=== PATIENT | female | born 1965 | race African-American/Black ===

== ENCOUNTER 2018-01-17 13:31 | Emergency (ER) | payer OTHER ==
[~2018-01-17] VITALS: Ht 157.5 cm; Wt 86.2 kg
[2018-01-17] MEDS ORDERED: ALLER-CHLOR4 MG PO (13:43)
[2018-01-17] MEDS ORDERED: FLONASE1 SPRAYS NASAL (13:43)
[2018-01-17] MEDS ORDERED: AMLODIPINE BESYL5 MG ORAL (13:43)
[2018-01-17] MEDS ORDERED: PROAIR HFA8.5 GM INH (13:43)
[2018-01-17] MEDS ORDERED: EPLERENONE25 MG PO (13:43)
[2018-01-17 13:49] VITALS: BP 188/99
--- NOTE | 2018-01-17 14:12 | Emergency Room Report ---
History of Present Illness General Chief Complaint: Pain Source: Patient Present Illness HPI 52 yo female patient reports to ER complaining of sciatica pain [id number]. Patient reports hx of sciatica for four years but reports no pain until exacerbation 2 weeks ago. Patient reports pain with sitting down; reports pain radiates down to left leg. Patient reports sciatica pain onset after moving furniture on the 02 of January. Denies acute injury. Reports being seen at ER in ; reports being given Ibuprofen and Flexeril at that time for symptoms. Reports taking 1200mg Ibuprofen and Aleve 3 hours ago. Patient denies chest pain, SOB, fever. Patient denies abdominal pain, no bowel or bladder incontinence, dysuria, blood in urine or stool, nausea, vomiting. Allergies: Coded Allergies: AMOXICILLIN (Verified Allergy, Unknown, ANGIOEDEMA, 01/17/18) GRASS POLLEN (Verified Allergy, Unknown, 01/17/18) HYDROCHLOROTHIAZIDE (Verified Allergy, Unknown, Hives, 01/17/18) MORPHINE (Verified Allergy, Unknown, EXTREME VOMITING, 01/17/18) Patient History Past Medical History: see triage record Last Menstrual Period: Hysterectomy 2009. Reviewed Nursing Documentation: PMH: Agreed, PSxH: Agreed Nursing Documentation-PMH Hx Hypertension: Yes Hx Asthma: Yes Review of Systems All Other Systems: negative except mentioned in HPI Physical Exam Vital Signs Date Time Temp Pulse Resp B/P (MAP) Pulse Ox O2 Delivery O2 Flow Rate FiO2 01/17/18 13:36 98.7 114 19 188/99 97 Room Air 98.8 Sp02 EP Interpretation: reviewed, normal General Appearance: well appearing, alert, GCS 15, non-toxic, mild distress Head: normocephalic, atraumatic Eyes: bilateral eye normal inspection, bilateral eye PERRL ENT: hearing grossly normal, normal pharynx, normal voice, uvula midline, moist mucus membranes Neck: normal inspection, full range of motion, no bony tend Respiratory: normal inspection, lungs clear, normal breath sounds, no rhonchi, no accessory muscle use, no wheezing, speaking full sentences Cardiovascular #1: regular rate, rhythm, no edema Cardiovascular #2: 2+ dorsalis pedis (R), 2+ dorsalis pedis (L) Rectal: deferred Genitourinary: no CVA tenderness Musculoskeletal: back normal, digits/nails normal, gait/station normal, normal range of motion, non-tender, no calf tenderness, Jose's Sign negative, other - pain with left straight leg raise Neurologic: alert, oriented x3, responsive, motor strength/tone normal, sensory intact, normal gait Psychiatric: mood/affect normal Skin: no rash Lymphatic: no adenopathy Medical Decision Making PA Attestation Dr. Land is my supervising Physician whom patient management has been discussed with. Diagnostic Impression: Primary Impression: Sciatica of left side ER Course Pt. presents to the ED c/o sciatica. Ddx considered but are not limited to sciatica, sprain, strain, contusion. Vital signs: pt. is afebrile. Patient blood pressure and pulse elevated; patient in mild distress currently secondary to pain. Denies chest pain, SOB, vision changes, leg swelling. Patient reports history of HTN. Patient instructed to followup with primary care provider for further treatment and referral as needed. Positive straight leg test of left leg while seated. Likely sciatica exacerbation. No bony tenderness. Denies bowel or bladder incontinence; suspicion for cauda equina low. Does not require imaging at this time. ER COURSE: Lidocaine patch provided to patient. Patient reports feeling much improved following placement of lidocaine patch. Informed patient will not provide with medication at this time due to increased dosage of NSAIDs taken earlier today. Informed patient not to take larger than recommended dosage of medication. Patient reports she has appointment on January 19, 2018; informed patient to keep appointment and to discuss further treatment and referral at that time; possible referral to pain management; may require further imaging at that time. Patient reports understanding and agreement to treatment plan. DISCHARGE: Rx provided for Methocarbamol. May cause drowsiness. Informed patient of side effects. Rx provided for lidocaine patches. If insurance will not cover, may use Salonpas or Bengay for topical relief of pain. Purchase seat donut for alleviation of pain while sitting. Instructed patient to take medications as directed. Take Ibuprofen for pain. Do not exceed recommended dosage of pain. At this time pt is stable for d/c to home. Patient is resting comfortably, in no acute distress, nontoxic appearing, talking without difficulty. Patient able to ambulate independently without difficulty. Vitals WNL prior to discharge. Patient to take medications as instructed Will provide with patient care instructions and any necessary prescriptions. Care plan and follow-up instructions provided. Patient instructed to follow-up with primary care provider in 3 - 5 days. Patient questions asked and answered. Patient reports understanding and agreement to treatment plan. ER precautions given. Patient instructed to return to ER immediately for any new or worsening of symptoms including but not limited to increasing SOB, persistent fever, abdominal pain, nausea, vomiting. Last Vital Signs Date Time Temp Pulse Resp B/P (MAP) Pulse Ox O2 Delivery O2 Flow Rate FiO2 01/17/18 13:49 98.8 19 188/99 97 Room Air 98.8 01/17/18 13:36 114 Disposition: HOME, SELF-CARE Condition: Stable Scripts Lidocaine (Lidoderm) 1 Each Adh..patch 1 PATCH TOPIC DAILY, #10 PATCH 0 Refills Patch(es) may remain in place for up to 12 hours in any 24-hour period. Prov: Jason Barlow 01/17/18 Methocarbamol* (ROBAXIN*) 500 Mg Tablet 500 MG PO TID, #21 TAB 0 Refills Prov: Jason Barlow 01/17/18 Patient Instructions: Sciatica, [id number] Additional Instructions: Followup with primary care provider in 3 -5 days. Discuss further referral to pain management. Take medications as directed. Do not take more than recommended dosage of medications. Muscle relaxant may cause sleepiness; do not drive, drink or operate heavy machinery while taking. Patient questions asked and answered. Do not move heavy furniture that may exacerbate pain. ER precautions given, patient instructed to return to ER immediately for any new or worsening of symptoms. Jason Barlow Jan 17, 2018 14:12
[2018-01-17] MEDS ORDERED: LIDODERM700 M1 TOPIC (14:15)
[2018-01-17] MEDS ORDERED: ROBAXIN500 MG PO (14:15)
[2018-01-17 15:15] VITALS: BP 145/79
== END 2018-01-17 14:41 | disposition home or self-care (01) ==
LOC: EMR 14:12
DX: M54.32 Sciatica, left side (principal); Z88.0 Allergy status to penicillin; Z88.5 Allergy status to narcotic agent; I10 Essential (primary) hypertension; J45.909 Unspecified asthma, uncomplicated
CPT/HCPCS: 99284

== ENCOUNTER 2019-04-05 21:10 | Emergency (ER) | payer OTHER ==
[~2019-04-05] VITALS: Ht 157.5 cm; Wt 86.6 kg
[~2019-04-05 21:10] MED LIST: ALLER-CHLOR4 MG PO; AMLODIPINE BESYL5 MG ORAL; EPLERENONE25 MG PO; FLONASE1 SPRAYS NASAL; LIDODERM700 M1 TOPIC; PROAIR HFA8.5 GM INH; ROBAXIN500 MG PO
[2019-04-05 21:24] VITALS: BP 125/70
--- NOTE | 2019-04-05 21:24 | NUR ---
ED Nurse Note: Pt arrived ED from home, c/o coughing greenish mucus for 2 days with sore throat and both lower chest pain. Pt is A/O X 4. Vital signs stable at this time, waiting for orders.
[2019-04-05] MEDS ORDERED: Ketorolac 30mg Inj IV ONE (21:45)
--- NOTE | 2019-04-05 21:51 | Emergency Room Report ---
History of Present Illness General Chief Complaint: Upper Respiratory Illness Source: Patient Present Illness HPI Patient presents with 4 days of fatigue in 2 days of chest pain with cough with green phlegm. She has a history of asthma. She was certain an inhaler yesterday morning. She's not been wheezing. The pain is left-sided, pleuritic and when she coughs. There's been no coughing up blood. She feels like when she had walking pneumonia 12-15 years ago. She denies any fevers or chills. She has slight swelling in her left leg. She had pins placed in her ankle. She denies having a blood clot and was checked when the surgery was done. Patient is rated 7/10 and radiates somewhat towards the side of the chest. The patient has a history of hypertension. She is on multiple medications. See medical treatment regarding h/o lupus and leukocytosis. Allergies: Coded Allergies: AMOXICILLIN (Verified Allergy, Unknown, ANGIOEDEMA, 01/17/18) BACLOFEN (Unverified Allergy, Unknown, 04/05/19) GRASS POLLEN (Verified Allergy, Unknown, 01/17/18) HYDROCHLOROTHIAZIDE (Verified Allergy, Unknown, Hives, 01/17/18) MORPHINE (Verified Allergy, Unknown, EXTREME VOMITING, 01/17/18) Uncoded Allergies: BACOFEN (Allergy, Unknown, 04/05/19) Patient History Past Medical History: see triage record Past Surgical History: hysterectomy - Partial Social History: Denies: smoking Social History Narrative from home Last Menstrual Period: Stop at 2009 Now: No Reviewed Nursing Documentation: PMH: Agreed; PSxH: Agreed Nursing Documentation-PMH Hx Hypertension: Yes Hx Asthma: Yes Hx COPD: Yes - PNA Hx Neurological Problems: Yes - Sciatica, Pins to left ankle, neck pain Review of Systems All Other Systems: negative except mentioned in HPI Physical Exam Vital Signs Date Time Temp Pulse Resp B/P (MAP) Pulse Ox O2 Delivery O2 Flow Rate FiO2 04/05/19 21:15 98.2 76 20 98 Room Air 04/05/19 21:24 125/70 Sp02 EP Interpretation: reviewed, normal General Appearance: well appearing, no apparent distress, GCS 15 Head: normocephalic Eyes: bilateral eye normal inspection, bilateral eye PERRL, bilateral eye EOMI ENT: moist mucus membranes Neck: supple Respiratory: lungs clear, normal breath sounds, other - Pain with breathing Cardiovascular #1: regular rate, rhythm Cardiovascular #2: 2+ radial (R) Gastrointestinal: normal inspection, normal bowel sounds, non tender, no mass, non-distended Musculoskeletal: back normal, gait/station normal, normal range of motion, no calf tenderness Neurologic: alert, oriented x3, grossly normal Skin: normal inspection, warm/dry Medical Decision Making Diagnostic Impression: Primary Impression: Pleurisy Additional Impressions: Leukocytosis Qualified Codes: D72.828 - Other elevated white blood cell count History of lupus ER Course Patient with asthma presents with pleuritic right-sided chest pain and productive cough of green phlegm. Differential includes acute myocardial infarction, pneumonia, pleurisy, bronchitis amongst others. Her lungs are clear at this time and she's afebrile. EKG, chest x-ray and labs are indicated. The patient will be given a dose of Toradol. EKG without injury. CXR no infiltrates - normal. Labs with leukocytosis. CMP normal. Pain resolved with treatment. No aspirin, advil, aleve, alkaselzer, peptobismol or alcohol. Tylenol and [place] OK. Follow up with your private physician. You should see a senior ui ux developer. You need to have testing for H. pylori. Bacterial infectious etiology identified. Based on exam pulmonary embolus is unlikely. Patient reports that a month ago she had a rash with hives that was treated with a Medrol Dosepak. She is been off of this for several weeks. There is bone been no recurrence of the rash. She also reports that her doctors have been following her for elevated white blood cell count. They are uncertain what the cause is. She also reports that she is tested positive for lupus but that they have stated that it is not been active. Discussed findings and treatment plan. Patient stable for outpatient observation and treatment. Laboratory Tests Test 04/05/19 21:22 04/05/19 21:55 Urine Color Pale yellow Urine Appearance Clear Urine pH 6 (4.5-8.0) Urine Specific [place] 1.020 (1.005-1.035) Urine Protein Negative (NEGATIVE) Urine Glucose (UA) Negative (NEGATIVE) Urine Ketones Negative (NEGATIVE) Urine Blood 1+ (NEGATIVE) H Urine Nitrite Negative (NEGATIVE) Urine Bilirubin Negative (NEGATIVE) Urine Urobilinogen 1 MG/DL (0.0-1.0) H Urine Leukocyte Esterase 1+ (NEGATIVE) H Urine RBC 2-4 /HPF (0 - 2) H Urine WBC 2-4 /HPF (0 - 2) Urine Squamous Epithelial Cells Few /LPF (NONE/OCC) Urine Bacteria Few /HPF (NONE) White Blood Count 16.4 K/UL (4.8-10.8) H Red Blood Count 4.33 M/UL (4.20-5.40) Hemoglobin 12.2 G/DL (12.0-16.0) Hematocrit 36.4 % (37.0-47.0) L Mean Corpuscular Volume 84 FL (80-99) Mean Corpuscular Hemoglobin 28.2 PG (27.0-31.0) Mean Corpuscular Hemoglobin Concent 33.6 G/DL (32.0-36.0) Red Cell Distribution Width 12.4 % (11.6-14.8) Platelet Count 306 K/UL (150-450) Mean Platelet Volume 6.5 FL (6.5-10.1) Neutrophils (%) (Auto) 74.8 % (45.0-75.0) Lymphocytes (%) (Auto) 18.5 % (20.0-45.0) L Monocytes (%) (Auto) 5.1 % (1.0-10.0) Eosinophils (%) (Auto) 0.5 % (0.0-3.0) Basophils (%) (Auto) 1.1 % (0.0-2.0) Sodium Level 138 MMOL/L (136-145) Potassium Level 4.6 MMOL/L (3.5-5.1) Chloride Level 104 MMOL/L (98-107) Carbon Dioxide Level 28 MMOL/L (21-32) Anion Gap 6 mmol/L (5-15) Blood Urea Nitrogen 19 mg/dL (7-18) H Creatinine 1.2 MG/DL (0.55-1.30) Estimate Glomerular Filtration Rate 57.2 mL/min (>60) Glucose Level 94 MG/DL (74-106) Calcium Level 9.2 MG/DL (8.5-10.1) Total Bilirubin 0.2 MG/DL (0.2-1.0) Aspartate Amino Transferase (AST) 12 U/L (15-37) L Alanine Aminotransferase (ALT) 16 U/L (12-78) Alkaline Phosphatase 75 U/L (46-116) Total Creatine Kinase 65 U/L (26-308) Pro-B-Type Natriuretic Peptide 100 pg/mL (0-125) Total Protein 7.9 G/DL (6.4-8.2) Albumin 3.5 G/DL (3.4-5.0) Globulin 4.4 g/dL Albumin/Globulin Ratio 0.8 (1.0-2.7) L EKG Diagnostic Results Rate: normal Rhythm: NSR ST Segments: no acute changes Rhythm Strip Diag. Results EP Interpretation: yes Rhythm: NSR, no PVC's, no ectopy Chest X-Ray Diagnostic Results Chest X-Ray Diagnostic Results : Chest X-Ray Ordered: Yes # of Views/Limited/Complete: 1 View Indication: Chest Pain EP Interpretation: Yes Interpretation: no consolidation, no effusion, no pneumothorax Impression: No acute disease Electronically Signed by: Electronically signed by Sunday Velez MD Last Vital Signs Date Time Temp Pulse Resp B/P (MAP) Pulse Ox O2 Delivery O2 Flow Rate FiO2 04/06/19 00:10 98.2 78 20 124/72 98 Room Air Status: improved Disposition: HOME, SELF-CARE Condition: Improved Scripts Fluticasone/Salmeterol (Advair 100-50 Diskus) 1 Each Blst.w.dev 1 PUFF INH EVERY 12 HOURS PRN for pain and or wheezing, #1 EA Prov: Sunday Velez MD 04/05/19 Ibuprofen* (MOTRIN*) 600 Mg Tablet 600 MG ORAL Q6H PRN for For Pain, #16 TAB 0 Refills Prov: Sunday Velez MD 04/05/19 Acetaminophen (Tylenol) 325 Mg Tablet 650 MG ORAL Q6H PRN for Prn Pain/Headache/Temp > 101, #20 TAB 0 Refills Prov: Sunday Velez MD 04/05/19 [facility] Sunday Velez MD April 05, 2019 21:51
[2019-04-05] MEDS ORDERED: NEURONTIN300 MG ORAL (21:58)
[2019-04-05] MEDS ORDERED: TIZANIDINE HCL4 M2 ORAL (21:58)
[2019-04-05] MEDS ORDERED: ATENOLOL50 MG ORAL (21:58)
[2019-04-05] MEDS ORDERED: IBUPROFEN600 MG ORAL ×2 (21:58→23:56)
[2019-04-05] MEDS ORDERED: OMEPRAZOLE20 M2 ORAL (21:58)
[2019-04-05] MEDS ORDERED: VENTOLIN HFA18 GM INH (21:58)
[2019-04-05] MEDS ORDERED: SPIRONOLACTONE1 GM MC (21:58)
[2019-04-05] MEDS ORDERED: FLONASE1 SPRAYS NASAL (21:58)
[2019-04-05] MEDS ORDERED: MEDROL DOSEPAK4 MG ORAL (21:58)
[2019-04-05 22:10] LABS: BASOPHILS % (AUTO) 1.1 % (0.0-2.0); EOSINOPHILS % (AUTO) 0.5 % (0.0-3.0); HEMATOCRIT 36.4 % (37.0-47.0); HEMOGLOBIN 12.2 G/DL (12.0-16.0); LYMPHOCYTES % (AUTO) 18.5 % (20.0-45.0); MEAN CORPUSCULAR VOLUME 84 FL (80-99); MONOCYTES % (AUTO) 5.1 % (1.0-10.0); NEUTROPHILS % (AUTO) 74.8 % (45.0-75.0); PLATELET COUNT 306 K/UL (150-450); RED BLOOD COUNT 4.33 M/UL (4.20-5.40); RED CELL DISTRIBUTION WIDTH 12.4 % (11.6-14.8); WHITE BLOOD COUNT 16.4 K/UL (4.8-10.8)
[2019-04-05 22:16] LABS: APPEARANCE,URINE CLEAR; BILIRUBIN, URINE NEGATIVE (NEGATIVE); COLOR,URINE PALE YELLOW; GLUCOSE, URINE (UA) NEGATIVE (NEGATIVE); KETONES,URINE NEGATIVE (NEGATIVE); LEUKOCYTE ESTERASE ,URINE 1+ (NEGATIVE); NITRITE,URINE NEGATIVE (NEGATIVE); PH,URINE 6 (4.5-8.0); PROTEIN,URINE NEGATIVE (NEGATIVE); UROBILINOGEN,URINE 1 MG/DL (0.0-1.0)
[2019-04-05 22:18] LABS: ANION GAP 6 mmol/L (5-15); BLOOD UREA NITROGEN 19 mg/dL (7-18); CALCIUM 9.2 MG/DL (8.5-10.1); CARBON DIOXIDE 28 MMOL/L (21-32); CHLORIDE 104 MMOL/L (98-107); CREATININE 1.2 MG/DL (0.55-1.30); POTASSIUM 4.6 MMOL/L (3.5-5.1); SODIUM 138 MMOL/L (136-145)
[2019-04-05 22:29] LABS: ALANINE AMINOTRANSFERASE 16 U/L (12-78); ALBUMIN 3.5 G/DL (3.4-5.0); ALBUMIN/GLOBULIN RATIO 0.8 (1.0-2.7); ALKALINE PHOSPHATASE 75 U/L (46-116); ASPARTATE AMINO TRANSFERASE 12 U/L (15-37); BILIRUBIN,TOTAL 0.2 MG/DL (0.2-1.0); CREATINE KINASE 65 U/L (26-308)
[2019-04-05] MEDS ORDERED: Promethazine/Codeine 5ml UD ORAL PRN (23:00)
[2019-04-05] MEDS ORDERED: Albuterol/Ipratropium 3ml neb HHN PRN (23:00)
[2019-04-05] MEDS ORDERED: Miralax 17gm pkt ORAL PRN (23:00)
--- NOTE | 2019-04-05 23:01 | NUR ---
ED Nurse Note: It was wrong patient's ordered entered by dr. Jimenez. Meds was cancelled.
[2019-04-05] MEDS ORDERED: ADVAIR 100-501 EACH INH (23:56)
[2019-04-05] MEDS ORDERED: TYLENOL325 MG ORAL (23:56)
--- NOTE | 2019-04-06 00:01 | NUR ---
Terri dale in EDM - 04/06/19 at 0048 by SIVAN ED Nurse Note: It was wrong patient's ordered entered by dr. Jimenez. Meds was cancelled.
--- NOTE | 2019-04-06 00:01 | NUR ---
ED Nurse Note: Order was cancelled.
[2019-04-06 00:10] VITALS: BP 124/72
--- NOTE | 2019-04-06 00:10 | NUR ---
ER DISCHARGE NOTE: Patient is cleared to be discharged per Rosie. Pt is aox4 on room air with stable vital signs. Pt was given dc and prescription instructions and was able to verbalize understanding. Pt's IV and ID band were removed. Pt is able to ambulate with steady gait and took all belongings. Accompanied by her family.
[2019-04-06] MEDS ORDERED: Heparin 5000 units/ml inj SUBQ SCH (09:00)
--- NOTE | 2019-04-06 11:44 | Diagnostic Imaging Report ---
Indication: Dyspnea Comparison: None A single view chest radiograph was obtained. Findings: Cardiomediastinal appearance is within normal limits for age. The lungs are clear. Pulmonary vascularity is appropriate. The diaphragmatic contour is smooth and costophrenic angles are sharp. No pleural effusions are identified. The bones are unremarkable. Impression: No acute findings
== END 2019-04-06 00:10 | disposition home or self-care (01) ==
LOC: EMR 21:26
DX: R09.1 Pleurisy (principal); D72.829 Elevated white blood cell count, unspecified; I10 Essential (primary) hypertension; J44.9 Chronic obstructive pulmonary disease, unspecified; M54.32 Sciatica, left side
CPT/HCPCS: 36415; 71045; 80053; 81003; 82550; 83880; 85025; 93005; 96374; 99284; J1885; J7040; J2405